=== PATIENT | female | born 1950 | race Caucasian/White ===

== ENCOUNTER 2018-07-23 15:42 | Emergency (ER) | payer SELFPAY ==
[2018-07-23 15:48] VITALS: Ht 157.5 cm
[2018-07-23 17:05] LABS: BASOPHIL % 0.4 % (0-2); PLATELET COUNT 303 x10^3mcL (130-400)
[2018-07-23 17:07] LABS: CALCIUM 8.8 mg/dL (8.5-10.1); CARBON DIOXIDE 32.1 mmol/L (21-32); CHLORIDE SERUM 101 mmol/L (98-107); CREATININE SERUM 0.9 mg/dL (0.6-1.0); GFR1 > 60 mL/min; GLUCOSE SERUM 145 mg/dL (74-106); POTASSIUM SERUM 4.5 mmol/L (3.5-5.1); RED CELL DISTRIBUTION WIDTH 14.9 % (11.5-14.5); SODIUM SERUM 136 mmol/L (136-145)
[2018-07-23 17:12] LABS: ALBUMIN 3.4 g/dL (3.4-5.0); ALKALINE PHOSPHATASE 104 U/L (46-116); ALT/SGPT 26 U/L (14-59); AST/SGOT 24 U/L (15-37); BILIRUBIN TOTAL 0.4 mg/dL (0.20-1.00); CHOLESTEROL 186 mg/dL (<200); MAGNESIUM 2.5 mg/dL (1.8-2.4); PHOSPHOROUS 4.2 mg/dL (2.5-4.9); TOTAL PROTEIN, SERUM 8.1 g/dL (6.4-8.2)
[2018-07-23 17:17] LABS: HDL CHOLESTEROL 31 mg/dL (40-60)
[2018-07-23 18:39] LABS: microscopic required? NO
[2018-07-23 18:59] LABS: urine erythrocyte NEGATIVE (NEGATIVE)
[2018-07-23 19:03] VITALS: BP 124/78
== END 2018-07-23 19:14 | disposition home or self-care (01) ==
LOC: ED 15:42
PROVIDERS: Emergency Medicine
DX: R53.1 Weakness (principal); K57.90 Diverticulosis of intestine, part unspecified, without perforation or abscess without bleeding; D72.829 Elevated white blood cell count, unspecified; I10 Essential (primary) hypertension; Z86.73 Personal history of transient ischemic attack (TIA), and cerebral infarction without residual deficits
CPT/HCPCS: J1885; J2405; J7030; Q0092

== ENCOUNTER 2018-07-24 12:41 | Emergency (ER) | payer SELFPAY ==
[~2018-07-24] VITALS: Ht 152.4 cm; Wt 87.1 kg
[2018-07-24 13:07] VITALS: Ht 152.4 cm; Wt 87.1 kg
[2018-07-24 14:27] LABS: BASOPHIL % 0.9 % (0-2); PLATELET COUNT 276 x10^3mcL (130-400); RED CELL DISTRIBUTION WIDTH 14.8 % (11.5-14.5)
[2018-07-24 15:01] VITALS: BP 124/51
== END 2018-07-24 15:01 | disposition home or self-care (01) ==
LOC: ED 12:41
PROVIDERS: Emergency Medicine
DX: R10.31 Right lower quadrant pain (principal); R10.32 Left lower quadrant pain; I10 Essential (primary) hypertension; Z86.73 Personal history of transient ischemic attack (TIA), and cerebral infarction without residual deficits
CPT/HCPCS: 36415; J1885